=== PATIENT | male | born 1970 | race Caucasian/White ===

== ENCOUNTER → 2018-07-17 | Outpatient (CLI) | payer OTHER ==
--- NOTE | 2018-07-17 16:33 | RADIOLOGY IMAGING REPORT ---
FACILITY: [facility] [place] PATIENT NAME: Herbert Alvarado : 1970 MR: [id number] V: [id number] EXAM DATE: ORDERING PHYSICIAN: YG DUMONT TECHNOLOGIST: Location: [facility] Patient: Herbert Alvarado : 1970 Visit/Account:[id number] Date of Sevice: 07/17/2018 VENOUS DOPP LOW LEFT EXTREMITY HISTORY: Fall, swelling behind the knee COMPARISON: None. FINDINGS: Duplex sonographic interrogation, segmental compressibility and evaluation of respiratory phasicity a nd augmentation reveals no evidence of DVT. Posterior to the left knee, there is a minimally complex , elliptical subcutaneous collection demonstrates some internal echogenicity. No hypervascularity. The overall extent measures approximately 8.3 x 5.9 x 0.7 cm and is indicative of a subcutaneous keny ute. IMPRESSION: 1. Subcutaneous hematoma as above. No evidence DVT. Report Dictated By: Alexander Terrazas MD at 07/17/2018 4:27 PM Report E-Signed By: Alexander Terrazas MD at 07/17/2018 4:28 PM WSN:[id number]
== END ==
LOC: US 15:15
PROVIDERS: ATTEND Nurse Practitioner Family
DX: M79.81 Nontraumatic hematoma of soft tissue (principal)